=== PATIENT | male | born 1990 | race Caucasian/White ===

== ENCOUNTER 2017-06-18 09:09 | Emergency (ER) | payer OTHER ==
[~2017-06-18] VITALS: Ht 177.8 cm; Wt 104.2 kg
[2017-06-18 09:10] VITALS: BP 134/82
[2017-06-18] MEDS ORDERED: KEFL500C17 PO (09:30)
== END 2017-06-18 09:42 | disposition home or self-care (01) ==
LOC: M ED 09:09
DX: L03.90 Cellulitis, unspecified (principal); L72.0 Epidermal cyst; J45.909 Unspecified asthma, uncomplicated

== ENCOUNTER 2018-02-09 15:18 | Emergency (ER) | payer OTHER | END 2018-02-09 18:13 | disposition home or self-care (01) | LOC: M ED 15:18 | DX: R55 Syncope and collapse (principal); F17.210 Nicotine dependence, cigarettes, uncomplicated | CPT/HCPCS: 71046 ==

== ENCOUNTER 2020-01-09 17:38 | Emergency (ER) | payer OTHER ==
[~2020-01-09] VITALS: Ht 177.8 cm; Wt 102.0 kg
[~2020-01-09 17:38] MED LIST: KEFL500C17 PO; PROV108A INH; VENTAER IN
[2020-01-09] MEDS ORDERED: TYLENOL COLD (17:46)
[2020-01-09] MEDS ORDERED: ALBUTEROL 90 MCG/ACT 8GM HFA INHALER INH ONE (18:15)
[2020-01-09 18:29] LABS: HEMATOCRIT 44.8 % (42.0-52.0); HEMOGLOBIN 16.2 g/dl (13.5-17.5); MEAN CORPUSCULAR HEMOGLOBIN 29.2 pg (27.0-33.0); MEAN CORPUSCULAR HGB CONC 36.2 g/dl (32.0-36.5); MEAN CORPUSCULAR VOLUME 80.7 fl (80.0-96.0); PLATELET COUNT, AUTOMATED 360 10^3/uL (150-450); RED BLOOD COUNT 5.55 10^6/uL (4.30-6.10)
[2020-01-09 18:30] LABS: WHITE BLOOD COUNT 12.7 10^3/uL (4.0-10.0)
[2020-01-09 18:44] LABS: ATYPICAL LYMPH 14 % (0-5); EOSINOPHILS 1 % (0-3); LYMPHOCYTES 36 % (16-44); MONOCYTES 6 % (0-5); NEUTROPHILS 42 % (28-66)
[2020-01-09 18:46] LABS: MICROCYTOSIS 1+; PLATELET ESTIMATE NORMAL (NORMAL)
--- NOTE | 2020-01-09 18:51 | REP ---
CHEST, SINGLE VIEW: There is no evidence of acute infiltrate. No pleural effusion is seen. The heart is normal in size. The mediastinal silhouette is unremarkable. The visualized osseous structures are intact. IMPRESSION: No acute pulmonary disease. Electronically Signed by Mak Nunez MD 01/09/2020 08:27 P
[2020-01-09 18:53] LABS: BLOOD UREA NITROGEN 8 MG/DL (7-18); CALCIUM LEVEL 9.6 MG/DL (8.5-10.1); CARBON DIOXIDE LEVEL 27 MEQ/L (21-32); CHLORIDE LEVEL 103 MEQ/L (98-107); CK-MB VALUE MASS < 1.0 NG/ML (<3.6); CPK CREATINE PHOSPHOKINASE 78 U/L (39-308); CREATININE FOR GFR 0.85 MG/DL (0.70-1.30); GLOMERULAR FILTRATION RATE > 60.0 (>60); GLUCOSE, FASTING 92 MG/DL (70-100); MB/CK RELATIVE INDEX 1.28 (< OR =4); SODIUM LEVEL 135 MEQ/L (136-145); TROPONIN I < 0.02 NG/ML (< 0.10)
[2020-01-09] MEDS ORDERED: PRED20TA PO (18:57)
[2020-01-09] MEDS ORDERED: BREAMIS10 MC (19:01)
[2020-01-09] MEDS ORDERED: PROV108A INH (19:01)
[2020-01-09 19:10] VITALS: BP 125/80
--- NOTE | 2020-01-10 01:23 | ECGEPIP ---
[facility] - ED Test Date: 2020-01-09 Pat Name: BRIDGET QUINTERO Department: Room: - Gender: Male [employer] Operator: neli : 1990 Requested By: EMILY VERAS Order Number: [id number] Reading MD: Reji Toure Measurements Intervals [place] Rate: 77 P: 68 ND: 157 QRS: 37 QRSD: 86 T: 43 QT: 352 QTc: 401 Interpretive Statements SINUS RHYTHM NSTTW ABNORMALITIES SIMILAR TO 02/09/18 Electronically Signed on 01-10-2020 1:22:44 EDT by Reji Toure
== END 2020-01-09 19:10 | disposition home or self-care (01) ==
LOC: M ED 17:38
DX: J45.901 Unspecified asthma with (acute) exacerbation (principal); F17.200 Nicotine dependence, unspecified, uncomplicated; Z79.899 Other long term (current) drug therapy

== ENCOUNTER → 2020-02-15 | Outpatient (CLI) | payer OTHER ==
[~2020-02-15] MED LIST changes: +BREAMIS10 MC; +PRED20TA PO; +TYLENOL COLD
--- NOTE | 2020-02-15 17:53 | REP ---
Clinical: Dyspnea . Comparison: 02/09/2018, 01/09/2020 . Technique: PA and lateral. Findings: The mediastinum and cardiac silhouette are normal. The lung rainey are clear and without acute consolidation, effusion, or pneumothorax. The skeletal structures are intact and normal. Impression: 1. No acute cardiopulmonary process. Electronically Signed by Yomi Guthrie MD 02/15/2020 05:45 P
== END ==
LOC: M RAD 14:17
PROVIDERS: ATTEND Physician Assistant
DX: R06.00 Dyspnea, unspecified (principal)

== ENCOUNTER → 2020-03-19 | Outpatient (CLI) | payer OTHER ==
[~2020-03-19] MED LIST changes: +METHACHOLINE KIT (J7674) INH ONE
--- NOTE | 2020-03-19 11:56 | PFTRPT ---
Height: 70.00 Inches Weight: 232.00 Lbs BSA: 2.22 Diagnosis: R06.00 DATE OF PROCEDURE: 03/19/2020 ORDERED BY: Vinh Stein PA-C INTERPRETATION: Study of excellent technical quality. Under protocol, methacholine was administered. At a maximal dose of 25 mg or 188.875 CDUs, a 23% decline in the FEV1 was noted. PC of 16.54 does not meet diagnostic criteria for a positive study, however. Flow rates did return to baseline post bronchodilator administration. IMPRESSION: Indeterminate methacholine challenge. Please correlate clinically. MTDD
== END ==
LOC: M CARPUL 10:41
PROVIDERS: ATTEND Physician Assistant
DX: R06.00 Dyspnea, unspecified (principal)
CPT/HCPCS: 94070; 95070; J7674

== ENCOUNTER 2022-12-11 13:56 | Emergency (ER) | payer OTHER ==
[~2022-12-11] VITALS: Ht 177.8 cm; Wt 95.8 kg
[~2022-12-11 13:56] MED LIST changes: +ALBU6.7H6 INH; -METHACHOLINE KIT (J7674) INH ONE; -PROV108A INH
[2022-12-11 13:57] VITALS: BP 138/82
[2022-12-11 16:35] LABS: BASO % 0.3 % (0.0-1.0); EOS # 0.2 10^3/uL (0.0-0.5); EOS % 1.4 % (0.0-3.0); HEMOGLOBIN 16.5 g/dl (13.5-17.5); LYMPH # 5.5 10^3/uL (1.5-5.0); LYMPH % 48.1 % (24.0-44.0); MEAN CORPUSCULAR HEMOGLOBIN 28.4 pg (27.0-33.0); MEAN CORPUSCULAR HGB CONC 35.1 g/dl (32.0-36.5); MEAN CORPUSCULAR VOLUME 80.8 fl (80.0-96.0); MONO # 0.9 10^3/uL (0.0-0.8); MONO % 7.9 % (2.0-8.0); NEUTROPHILS # 4.8 10^3/uL (1.5-8.5); NEUTROPHILS % 42.1 % (36.0-66.0); PLATELET COUNT, AUTOMATED 401 10^3/uL (150-450); RED BLOOD COUNT 5.82 10^6/uL (4.30-6.10); WHITE BLOOD COUNT 11.5 10^3/uL (4.0-10.0)
[2022-12-11 16:55] LABS: LIPASE 57 U/L (12-53)
[2022-12-11 16:57] LABS: CPK CREATINE PHOSPHOKINASE 71 U/L (46-171)
[2022-12-11 17:00] LABS: ALBUMIN 4.5 G/DL (3.2-5.2); ALKALINE PHOSPHATASE 86 U/L (46-116); ALT/SGPT 68 U/L (7.0-40); AST/SGOT 25 U/L (<34); BILIRUBIN,DIRECT 0.3 MG/DL (<0.4); BLOOD UREA NITROGEN 5 MG/DL (9-23); CALCIUM LEVEL 9.7 MG/DL (8.5-10.1); CARBON DIOXIDE LEVEL 30 MMOL/L (20-31); CHLORIDE LEVEL 100 MMOL/L (98-107); CK-MB VALUE MASS < 1.0 NG/ML (<3.6); CREATININE FOR GFR 0.82 MG/DL (0.70-1.30); FREE T4 1.39 NG/DL (0.89-1.76); GLOMERULAR FILTRATION RATE > 60.0 (>60); GLUCOSE, FASTING 87 MG/DL (60-100); POTASSIUM SERUM 4.3 MMOL/L (3.5-5.1); SODIUM LEVEL 138 MMOL/L (136-145); THYROID STIMULATING HORMONE 2.998 uIU/ML (0.55-4.78); TOTAL PROTEIN 7.2 G/DL (5.7-8.2)
[2022-12-11] MEDS ORDERED: ISOVUE-370 76% 100ML VIAL As Ordered ONE (18:12)
== END 2022-12-11 19:17 | disposition home or self-care (01) ==
LOC: M ED 13:56
DX: R00.2 Palpitations (principal); J45.909 Unspecified asthma, uncomplicated; F17.200 Nicotine dependence, unspecified, uncomplicated; F12.10 Cannabis abuse, uncomplicated; Z79.52 Long term (current) use of systemic steroids
CPT/HCPCS: 36415; 71046; 71275; 80048; 80076; 82550; 82553; 83690; 84439; 84443; 85025; 93005; 99284; Q9967

== ENCOUNTER 2023-04-17 11:17 | Inpatient (IN) | payer OTHER ==
[~2023-04-17] VITALS: Ht 177.8 cm; Wt 103.0 kg
[2023-04-17 12:05] LABS: BASO # 0.1 10^3/uL (0.0-0.2); BASO % 0.5 % (0.0-1.0); EOS # 0.2 10^3/uL (0.0-0.5); EOS % 1.4 % (0.0-3.0); HEMATOCRIT 44.7 % (42.0-52.0); LYMPH # 3.4 10^3/uL (1.5-5.0); MEAN CORPUSCULAR HEMOGLOBIN 28.8 pg (27.0-33.0); MEAN CORPUSCULAR HGB CONC 35.8 g/dl (32.0-36.5); MEAN CORPUSCULAR VOLUME 80.5 fl (80.0-96.0); MONO # 0.8 10^3/uL (0.0-0.8); MONO % 7.9 % (2.0-8.0); NEUTROPHILS % 56.9 % (36.0-66.0); PLATELET COUNT, AUTOMATED 289 10^3/uL (150-450); RED BLOOD COUNT 5.55 10^6/uL (4.30-6.10); WHITE BLOOD COUNT 10.4 10^3/uL (4.0-10.0)
[2023-04-17 12:29] LABS: BLOOD UREA NITROGEN 12 MG/DL (9-23); CALCIUM LEVEL 8.8 MG/DL (8.5-10.1); CARBON DIOXIDE LEVEL 26 MMOL/L (20-31); CHLORIDE LEVEL 102 MMOL/L (98-107); CPK CREATINE PHOSPHOKINASE 123 U/L (46-171); CREATININE FOR GFR 0.73 MG/DL (0.70-1.30); GLOMERULAR FILTRATION RATE > 60.0 (>60); GLUCOSE, FASTING 99 MG/DL (60-100); SODIUM LEVEL 137 MMOL/L (136-145)
[2023-04-17 12:30] LABS: CK-MB VALUE MASS < 1.0 NG/ML (<3.6); MB/CK RELATIVE INDEX 0.81 (< OR =4)
[2023-04-17 12:33] LABS: THYROID STIMULATING HORMONE 1.578 uIU/ML (0.55-4.78)
[2023-04-17 12:34] LABS: FREE T4 1.38 NG/DL (0.89-1.76)
[2023-04-17 12:50] LABS: RSV AMPLIFICATION NEGATIVE (NEGATIVE)
[2023-04-17] MEDS: METOPROLOL 5 MG/5 ML VIAL IV SCH ×3 (12:59→13:32)
[2023-04-17 13:05] LABS: MAGNESIUM LEVEL 1.8 MG/DL (1.8-2.4); PHOSPHORUS LEVEL 3.5 MG/DL (2.5-4.9)
[2023-04-17 13:52] LABS: CK-MB VALUE MASS < 1.0 NG/ML (<3.6)
[2023-04-17 13:54] LABS: CPK CREATINE PHOSPHOKINASE 121 U/L (46-171); MB/CK RELATIVE INDEX 0.82 (< OR =4)
[2023-04-17] MEDS ORDERED: METOPROLOL TART 50 MG TAB PO ONE (14:35)
[2023-04-17] MEDS ORDERED: NS 1,000 ML IV ONE (17:05)
[2023-04-17] MEDS ORDERED: HOME MED LIST COMPLETE! XX SCH (17:25)
[2023-04-17] MEDS ORDERED: METOPROLOL TART 12.5 MG PER 1/2 TAB PO SCH (18:00)
[2023-04-17 18:54] VITALS: BP 132/91; TEMP 97.6; O2SAT 99
[2023-04-17] MEDS ORDERED: ONDANSETRON 4MG 2ML VIAL IV PRN (19:25)
[2023-04-17 19:53] VITALS: BP 126/75; TEMP 97.2; O2SAT 97
[2023-04-17] MEDS: APIXABAN 5 MG TAB (ELIQUIS) PO SCH (20:49)
[2023-04-17] MEDS: NS 1,000 ML IV SCH (20:49)
[2023-04-17] MEDS ORDERED: PANTOPRAZOLE 40MG TAB (PROTONIX) PO SCH (21:00)
[2023-04-17 23:43] VITALS: BP 133/61; TEMP 97.9; O2SAT 95
[2023-04-18] MEDS: METOPROLOL TART 25 MG TABLET PO SCH ×2 (00:19→05:46)
[2023-04-18 05:00] VITALS: BP 117/64; TEMP 98; O2SAT 97
[2023-04-18 05:11] LABS: BASO # 0.1 10^3/uL (0.0-0.2); BASO % 0.4 % (0.0-1.0); EOS # 0.2 10^3/uL (0.0-0.5); EOS % 1.5 % (0.0-3.0); HEMATOCRIT 44.7 % (42.0-52.0); HEMOGLOBIN 15.5 g/dl (13.5-17.5); LYMPH # 5.9 10^3/uL (1.5-5.0); LYMPH % 46.1 % (24.0-44.0); MEAN CORPUSCULAR HEMOGLOBIN 28.9 pg (27.0-33.0); MEAN CORPUSCULAR HGB CONC 34.7 g/dl (32.0-36.5); MEAN CORPUSCULAR VOLUME 83.2 fl (80.0-96.0); MONO # 0.9 10^3/uL (0.0-0.8); MONO % 7.1 % (2.0-8.0); NEUTROPHILS # 5.7 10^3/uL (1.5-8.5); NEUTROPHILS % 44.6 % (36.0-66.0); PLATELET COUNT, AUTOMATED 309 10^3/uL (150-450); RED BLOOD COUNT 5.37 10^6/uL (4.30-6.10); WHITE BLOOD COUNT 12.7 10^3/uL (4.0-10.0)
[2023-04-18 05:35] LABS: BLOOD UREA NITROGEN 12 MG/DL (9-23); CALCIUM LEVEL 8.4 MG/DL (8.5-10.1); CARBON DIOXIDE LEVEL 26 MMOL/L (20-31); CHLORIDE LEVEL 106 MMOL/L (98-107); CREATININE FOR GFR 0.76 MG/DL (0.70-1.30); GLOMERULAR FILTRATION RATE > 60.0 (>60); GLUCOSE, FASTING 93 MG/DL (60-100); POTASSIUM SERUM 4.1 MMOL/L (3.5-5.1); SODIUM LEVEL 139 MMOL/L (136-145)
[2023-04-18 05:46] VITALS: BP 117/64
[2023-04-18] MEDS: NS 1,000 ML IV SCH (07:15)
[2023-04-18 07:33] VITALS: BP 123/68; TEMP 97.9; O2SAT 96
[2023-04-18] MEDS: APIXABAN 5 MG TAB (ELIQUIS) PO SCH (08:36)
[2023-04-18] MEDS ORDERED: SUCRALFATE SUSP 1GM/10ML UD PO SCH (12:00)
[2023-04-18 12:05] VITALS: BP 127/75; TEMP 96.5; O2SAT 98
[2023-04-18] MEDS ORDERED: ECOT81TA5 PO (12:39)
[2023-04-18] MEDS ORDERED: METO1TAB87 PO (12:39)
[2023-04-18] MEDS ORDERED: METOPROLOL TART 25 MG TABLET PO SCH (18:00)
== END 2023-04-18 14:22 | disposition home or self-care (01) | DRG 201 ==
LOC: M ED 11:17 → M ED INP 14:54 → M PCU 18:38
PROVIDERS: ADMIT Internal Medicine Nephrology; ATTEND Internal Medicine Nephrology
DX: I48.91 Unspecified atrial fibrillation (principal)

== ENCOUNTER 2023-12-07 06:47 | Emergency (ER) | payer MEDICAID, OTHER, SELFPAY ==
[~2023-12-07] VITALS: Ht 177.8 cm; Wt 105.4 kg
[~2023-12-07 06:47] MED LIST changes: +ECOT81TA5 PO; +METO1TAB87 PO
[2023-12-07 07:56] LABS: BASO % 0.2 % (0.0-1.0); EOS # 0.2 10^3/uL (0.0-0.5); EOS % 1.9 % (0.0-3.0); HEMATOCRIT 40.2 % (42.0-52.0); HEMOGLOBIN 14.4 g/dl (13.5-17.5); LYMPH # 3.4 10^3/uL (1.5-5.0); LYMPH % 40.8 % (24.0-44.0); MEAN CORPUSCULAR HEMOGLOBIN 29.4 pg (27.0-33.0); MEAN CORPUSCULAR HGB CONC 35.8 g/dl (32.0-36.5); MONO # 0.9 10^3/uL (0.0-0.8); MONO % 10.1 % (2.0-8.0); NEUTROPHILS # 3.9 10^3/uL (1.5-8.5); NEUTROPHILS % 46.6 % (36.0-66.0); PLATELET COUNT, AUTOMATED 269 10^3/uL (150-450); WHITE BLOOD COUNT 8.4 10^3/uL (4.0-10.0)
[2023-12-07 08:17] LABS: CK-MB VALUE MASS < 1.0 NG/ML (<3.6)
[2023-12-07 08:30] LABS: ALBUMIN 3.8 G/DL (3.2-5.2); ALKALINE PHOSPHATASE 101 U/L (46-116); ALT/SGPT 72 U/L (7.0-40); AST/SGOT 40 U/L (<34); BILIRUBIN,TOTAL 0.3 MG/DL (0.3-1.2); BLOOD UREA NITROGEN 12 MG/DL (9-23); CALCIUM LEVEL 8.8 MG/DL (8.5-10.1); CARBON DIOXIDE LEVEL 25 MMOL/L (20-31); CHLORIDE LEVEL 108 MMOL/L (98-107); CPK CREATINE PHOSPHOKINASE 89 U/L (46-171); CREATININE FOR GFR 0.68 MG/DL (0.70-1.30); GLOMERULAR FILTRATION RATE > 60.0 (>60); GLUCOSE, FASTING 165 MG/DL (60-100); MB/CK RELATIVE INDEX 1.12 (< OR =4); POTASSIUM SERUM 3.6 MMOL/L (3.5-5.1); SODIUM LEVEL 140 MMOL/L (136-145); TOTAL PROTEIN 6.3 G/DL (5.7-8.2)
[2023-12-07 08:31] VITALS: BP 136/67
[2023-12-07] MEDS: METOPROLOL TART 50 MG TAB PO ONE (08:31)
[2023-12-07 09:22] LABS: CK-MB VALUE MASS < 1.0 NG/ML (<3.6); CPK CREATINE PHOSPHOKINASE 80 U/L (46-171); MB/CK RELATIVE INDEX 1.25 (< OR =4)
[2023-12-07] MEDS ORDERED: METO25TA4 PO (09:29)
[2023-12-07 09:53] VITALS: BP 135/66; TEMP 97.4; O2SAT 98
== END 2023-12-07 10:01 | disposition home or self-care (01) ==
LOC: M ED 06:47
DX: I48.0 Paroxysmal atrial fibrillation (principal); E66.9 Obesity, unspecified; K58.9 Irritable bowel syndrome, unspecified; Z79.899 Other long term (current) drug therapy

== ENCOUNTER 2024-10-20 03:26 | Emergency (ER) | payer SELFPAY ==
[~2024-10-20] VITALS: Ht 177.8 cm; Wt 95.1 kg
[~2024-10-20 03:26] MED LIST changes: +METO25TA4 PO
[2024-10-20 03:28] VITALS: BP 154/83; TEMP 97.3; O2SAT 98
== END 2024-10-20 03:35 | disposition left against medical advice (07) ==
LOC: M ED 03:26
DX: Z53.21 Procedure and treatment not carried out due to patient leaving prior to being seen by health care provider (principal)

== ENCOUNTER 2024-10-23 23:02 | Emergency (ER) | payer MEDICAID, SELFPAY ==
[~2024-10-23] VITALS: Ht 177.8 cm; Wt 93.0 kg
[2024-10-24 00:09] LABS: BASO % 0.2 % (0.0-1.0); EOS # 0.1 10^3/uL (0.0-0.5); EOS % 1.1 % (0.0-3.0); HEMATOCRIT 44.6 % (42.0-52.0); HEMOGLOBIN 15.8 g/dl (13.5-17.5); LYMPH # 4.6 10^3/uL (1.5-5.0); LYMPH % 37.6 % (24.0-44.0); MEAN CORPUSCULAR HEMOGLOBIN 28.7 pg (27.0-33.0); MEAN CORPUSCULAR HGB CONC 35.4 g/dl (32.0-36.5); MEAN CORPUSCULAR VOLUME 80.9 fl (80.0-96.0); MONO % 7.8 % (2.0-8.0); NEUTROPHILS # 6.5 10^3/uL (1.5-8.5); PLATELET COUNT, AUTOMATED 334 10^3/uL (150-450); RED BLOOD COUNT 5.51 10^6/uL (4.30-6.10); WHITE BLOOD COUNT 12.2 10^3/uL (4.0-10.0)
[2024-10-24 00:26] LABS: CK-MB VALUE MASS < 1.0 NG/ML (<3.6)
[2024-10-24 00:27] LABS: CPK CREATINE PHOSPHOKINASE 52 U/L (46-171); MB/CK RELATIVE INDEX 1.92 (< OR =4)
[2024-10-24 00:28] LABS: BLOOD UREA NITROGEN 12 MG/DL (9-23); CALCIUM LEVEL 9.2 MG/DL (8.5-10.1); CARBON DIOXIDE LEVEL 27 MMOL/L (20-31); CHLORIDE LEVEL 106 MMOL/L (98-107); CREATININE FOR GFR 0.78 MG/DL (0.70-1.30); GLOMERULAR FILTRATION RATE > 60.0 (>60); GLUCOSE, FASTING 113 MG/DL (60-100); POTASSIUM SERUM 3.9 MMOL/L (3.5-5.1); SODIUM LEVEL 142 MMOL/L (136-145)
[2024-10-24 01:13] LABS: CK-MB VALUE MASS < 1.0 NG/ML (<3.6); CPK CREATINE PHOSPHOKINASE 51 U/L (46-171); MB/CK RELATIVE INDEX 1.96 (< OR =4)
[2024-10-24 02:36] VITALS: BP 117/80; TEMP 97.2; O2SAT 98
== END 2024-10-24 02:40 | disposition home or self-care (01) ==
LOC: M ED 23:02
DX: R07.9 Chest pain, unspecified (principal); R06.02 Shortness of breath; I45.10 Unspecified right bundle-branch block; I49.49 Other premature depolarization; F17.200 Nicotine dependence, unspecified, uncomplicated; Z79.899 Other long term (current) drug therapy

== ENCOUNTER 2024-10-25 23:45 | Emergency (ER) | payer MEDICAID ==
[~2024-10-25] VITALS: Ht 177.8 cm; Wt 95.0 kg
[2024-10-25 23:50] VITALS: TEMP 96.3
[2024-10-26 01:00] VITALS: BP 135/83; O2SAT 98
[2024-10-26 01:36] LABS: BASO % 0.2 % (0.0-1.0); EOS # 0.2 10^3/uL (0.0-0.5); EOS % 1.4 % (0.0-3.0); HEMATOCRIT 44.9 % (42.0-52.0); HEMOGLOBIN 16.1 g/dl (13.5-17.5); LYMPH # 5.2 10^3/uL (1.5-5.0); LYMPH % 37.2 % (24.0-44.0); MEAN CORPUSCULAR HGB CONC 35.9 g/dl (32.0-36.5); MEAN CORPUSCULAR VOLUME 80.9 fl (80.0-96.0); MONO # 0.8 10^3/uL (0.0-0.8); NEUTROPHILS # 7.6 10^3/uL (1.5-8.5); PLATELET COUNT, AUTOMATED 326 10^3/uL (150-450); RED BLOOD COUNT 5.55 10^6/uL (4.30-6.10); WHITE BLOOD COUNT 13.9 10^3/uL (4.0-10.0)
[2024-10-26 02:05] LABS: LIPASE 33 U/L (12-53)
[2024-10-26] MEDS: KETOROLAC TROMETHAMINE 10 MG TAB PO ONE (02:06)
[2024-10-26 02:08] LABS: ALBUMIN 4.4 G/DL (3.2-5.2); ALKALINE PHOSPHATASE 108 U/L (40-129); ALT/SGPT 65 U/L (7.0-40); AST/SGOT 25 U/L (<34); BILIRUBIN,DIRECT < 0.1 MG/DL (<0.4); BILIRUBIN,TOTAL 0.3 MG/DL (0.3-1.2); BLOOD UREA NITROGEN 15 MG/DL (9-23); CALCIUM LEVEL 9.7 MG/DL (8.5-10.1); CARBON DIOXIDE LEVEL 27 MMOL/L (20-31); CHLORIDE LEVEL 102 MMOL/L (98-107); CK-MB VALUE MASS < 1.0 NG/ML (<3.6); CREATININE FOR GFR 0.89 MG/DL (0.70-1.30); GLOMERULAR FILTRATION RATE > 60.0 (>60); GLUCOSE, FASTING 89 MG/DL (60-100); MAGNESIUM LEVEL 1.9 MG/DL (1.8-2.4); POTASSIUM SERUM 3.8 MMOL/L (3.5-5.1); SODIUM LEVEL 141 MMOL/L (136-145); TOTAL PROTEIN 7.6 G/DL (5.7-8.2)
[2024-10-26 02:09] LABS: THYROID STIMULATING HORMONE 2.513 uIU/ML (0.55-4.78)
[2024-10-26 02:10] LABS: CPK CREATINE PHOSPHOKINASE 63 U/L (46-171); MB/CK RELATIVE INDEX 1.58 (< OR =4)
== END 2024-10-26 02:09 | disposition left against medical advice (07) ==
LOC: M ED 23:45
DX: R00.2 Palpitations (principal); F41.1 Generalized anxiety disorder; F17.200 Nicotine dependence, unspecified, uncomplicated; Z79.899 Other long term (current) drug therapy; Z86.79 Personal history of other diseases of the circulatory system

== ENCOUNTER 2025-08-20 13:32 | Inpatient (IN) | payer OTHER ==
[~2025-08-20] VITALS: Ht 175.3 cm; Wt 96.9 kg
[~2025-08-20 13:32] MED LIST changes: +ESTR1DIS TOP; +SPIR50TA4 PO
[2025-08-20 14:20] LABS: PLATELET COUNT, AUTOMATED 376 10^3/uL (150-450)
[2025-08-20] MEDS ORDERED: HOME MED LIST COMPLETE! XX SCH (14:35)
[2025-08-20 14:50] LABS: BARBITURATES URINE NEGATIVE (NEGATIVE); COCAINE METABOLITE URINE NEGATIVE (NEGATIVE); METHADONE URINE NEGATIVE (NEGATIVE); OPIATES URINE NEGATIVE (NEGATIVE)
[2025-08-20 14:51] LABS: AMPHETAMINES LEVEL URINE NEGATIVE (NEGATIVE); BENZODIAZEPINES URINE NEGATIVE (NEGATIVE); PHENCYCLIDINE URINE NEGATIVE (NEGATIVE)
[2025-08-20 14:52] LABS: CANNABINOIDS URINE POSITIVE (NEGATIVE)
[2025-08-20 14:53] LABS: ETHYL ALCOHOL (ETHANOL) < 0.003 % (0.000-0.010)
[2025-08-20 14:54] LABS: SALICYLATE LEVEL < 3.0 MG/DL (<30)
[2025-08-20 14:55] LABS: ALT/SGPT 40 U/L (7.0-40); AST/SGOT 23 U/L (<34); CALCIUM LEVEL 9.5 MG/DL (8.5-10.1); CARBON DIOXIDE LEVEL 28 MMOL/L (20-31); CHLORIDE LEVEL 102 MMOL/L (98-107); CREATININE FOR GFR 0.96 MG/DL (0.70-1.30); GLOMERULAR FILTRATION RATE > 90.0 (>60); POTASSIUM SERUM 4.3 MMOL/L (3.5-5.1); SODIUM LEVEL 139 MMOL/L (136-145)
[2025-08-20] MEDS ORDERED: ACETAMINOPHEN 325 MG TAB PO PRN (17:45)
[2025-08-20] MEDS ORDERED: MOM 30 ML SUSPENSION UDC PO PRN (17:45)
[2025-08-20] MEDS ORDERED: traZODone 50 MG TAB PO PRN (17:45)
[2025-08-20] MEDS ORDERED: MAALOX 30 ML SUSP *UDC PO PRN (17:45)
[2025-08-20] MEDS ORDERED: IBUPROFEN 400 MG TAB PO PRN (17:45)
[2025-08-20 21:30] VITALS: BP 140/91; TEMP 97.9; O2SAT 96
[2025-08-21 06:38] VITALS: BP 126/77; TEMP 97.1; O2SAT 98
[2025-08-21 17:13] VITALS: BP 138/82; TEMP 97.6; O2SAT 96
[2025-08-21] MEDS: SPIRONOLACTONE 50 MG TAB PO SCH (17:25)
[2025-08-22 06:38] VITALS: BP 143/84; TEMP 97.6; O2SAT 97
[2025-08-22] MEDS: SPIRONOLACTONE 50 MG TAB PO SCH (15:41)
[2025-08-22 16:35] VITALS: BP 143/78; TEMP 98.1; O2SAT 97
[2025-08-23 06:42] VITALS: BP 145/72; TEMP 97.5; O2SAT 99
[2025-08-23 16:13] VITALS: BP 139/84; TEMP 97.8; O2SAT 95
[2025-08-23] MEDS ORDERED: ABIL10TA9 PO (23:55)
[2025-08-23] MEDS ORDERED: TRAZ-252 PO (23:55)
[2025-08-24 06:42] VITALS: BP 143/95; TEMP 97; O2SAT 96
[2025-08-24 08:01] VITALS: BP 135/87
== END 2025-08-24 09:46 | disposition home or self-care (01) | DRG 753 ==
LOC: M ED 13:32 → M ED INP 17:43 → M PSY 19:52
PROVIDERS: ADMIT Student in an Organized Health Care Education/Training Program; ATTEND Student in an Organized Health Care Education/Training Program
DX: F31.32 Bipolar disorder, current episode depressed, moderate (principal); F41.9 Anxiety disorder, unspecified; F60.3 Borderline personality disorder; F10.20 Alcohol dependence, uncomplicated; F12.20 Cannabis dependence, uncomplicated; F64.0 Transsexualism; R45.851 Suicidal ideations; Z91.51 Personal history of suicidal behavior; Z79.891 Long term (current) use of opiate analgesic; Z79.899 Other long term (current) drug therapy; J45.909 Unspecified asthma, uncomplicated; I48.0 Paroxysmal atrial fibrillation; K58.9 Irritable bowel syndrome, unspecified; Z90.49 Acquired absence of other specified parts of digestive tract; F17.290 Nicotine dependence, other tobacco product, uncomplicated; G47.33 Obstructive sleep apnea (adult) (pediatric); Z71.6 Tobacco abuse counseling; Z71.51 Drug abuse counseling and surveillance of drug abuser